=== PATIENT | male | born 2005 | race Caucasian/White ===

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

== ENCOUNTER → 2025-01-28 | Outpatient (CLI) | payer MEDICAID ==
[~2025-01-28] MED LIST changes: +DOXY50TA3 GT; +VIBRAMYCIN GT
== END ==
LOC: M RAD 14:45
PROVIDERS: ATTEND Pediatrics Pediatric Gastroenterology
DX: K56.41 Fecal impaction (principal); K59.09 Other constipation

== ENCOUNTER → 2025-03-11 | Outpatient (CLI) | payer MEDICAID ==
[2025-03-11 16:28] LABS: BASO # 0.1 10^3/uL (0.0-0.2); BASO % 0.8 % (0.0-1.0); EOS # 0.2 10^3/uL (0.0-0.5); EOS % 1.7 % (0.0-3.0); LYMPH # 1.5 10^3/uL (1.5-5.0); LYMPH % 13.5 % (24.0-44.0); MONO # 0.9 10^3/uL (0.0-0.8); MONO % 8.5 % (2.0-8.0); NEUTROPHILS # 8.3 10^3/uL (1.5-8.5); NEUTROPHILS % 75.2 % (36.0-66.0); PLATELET COUNT, AUTOMATED 368 10^3/uL (150-450)
[2025-03-11 16:51] LABS: IRON (FE) 26.0 UG/DL (65-175); PERCENT SATURATION 7.6 % (19.7-50.0)
== END ==
LOC: M LAB 16:00
PROVIDERS: ATTEND Pediatrics
DX: D50.8 Other iron deficiency anemias (principal)